=== PATIENT | female | born 1935 | race Caucasian/White ===

== ENCOUNTER 2017-09-22 09:59 | Outpatient (CLI) | payer MEDICARE, OTHER | END 2017-09-22 10:00 | disposition home or self-care (01) | LOC: BICMAMMO 09:59 | PROVIDERS: ATTEND Internal Medicine | DX: Z12.31 Encounter for screening mammogram for malignant neoplasm of breast (principal); R92.1 Mammographic calcification found on diagnostic imaging of breast | CPT/HCPCS: 77063; 77067 ==

== ENCOUNTER 2019-02-18 20:12 | Emergency (ER) | payer MEDICARE, OTHER ==
[~2019-02-18 20:12] MED LIST: ISOVUE-370 76%-LOCM 1 ML ONE
[2019-02-18 20:44] LABS: #Eosinphils 0.2 thou/uL (0.0-0.7); #Lymphocytes 1.9 thou/uL (1.20-3.40); #Monocytes 0.7 thou/uL (0.11-0.59); %Basophils 0.5 % (0.0-1.0); %Eosinophils 3.1 % (0.0-10.0); %Lymphocytes 23.9 % (21.0-51.0); %Monocytes 8.8 % (0.0-10.0); %Neutrophils 63.7 % (42.0-75.0); Hemoglobin 12.2 g/dL (12.0-16.0); Mean Corpuscular HGB CONC 33.2 g/dL (32.0-36.0); Mean Corpuscular Hemoglobin 31.1 pg (27.0-31.0); Mean Corpuscular Volume 93.5 fL (78.0-98.0); Mean Platelet Volume 8.8 fL (7.4-10.4); Platelet Count 182 thou/uL (130-400); RBC Distribution Width 13.5 % (11.5-14.5); Red Blood Cell (RBC) Count 3.92 mill/uL (4.20-5.40); White Blood Cell (WBC) Count 7.8 thou/uL (4.8-10.8)
[2019-02-18 21:05] LABS: ALT (SGPT) 15 U/L (8-55); AST (SGOT) 26 U/L (5-34); Albumin 3.9 g/dL (3.4-4.8); Alkaline Phosphatase 97 U/L (40-150); Anion Gap 12 mmol/L (10-20); BUN (Urea Nitrogen) 27 mg/dL (9.8-20.1); Bilirubin, Total 0.3 mg/dL (0.2-1.2); CK (CPK) 126 U/L (29-168); Calc. Creatinine Clearance 0 mL/min (70-130); Calcium 9.5 mg/dL (7.8-10.44); Carbon Dioxide 26 mmol/L (23-31); Chloride 105 mmol/L (98-107); Estimated GFR-MDRD 41; Globulin 2.8 g/dL (2.4-3.5); Glucose 120 mg/dL (83-110); Protein, Total 6.7 g/dL (6.0-8.3); Sodium 139 mmol/L (136-145)
--- NOTE | 2019-02-18 21:30 | CT ---
CT Aortic Dissection Protocol History: Chest pain Comparison: CT chest 2016 Findings: CT angiogram chest and abdomen performed after the intravenous administration of contrast. 3-D rendering provided. Mild dilatation of the distal transverse aorta measuring up to 3.5 cm. No intramural hematoma. No dis section. No penetrating atherosclerotic ulcer. Large volume plaque left internal iliac artery. Multiple centrilobular nodules are present within the right upper lobe with bronchiectasis. Mild bron chiectasis within the right middle lobe and the lingula with Heart size is enlarged. Pulmonary trunk is enlarged. No mediastinal adenopathy. There is abnormal wall edema of the gallbladder. Common bile duct measures 9 mm, upper limits of norm al for age. No dilated loops of large or small bowel the abdomen. No retroperitoneal. Aortic adenopathy. 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 Multilevel retrolisthesis due to degenerative disc space disease with neural foraminal narrowing. Dorsal column stimulator 4is in place. High-grade narrowing of the celiac trunk with post not dilatation from the arcuate ligament. Mild jose rowing of the superior mesenteric artery due to calcific plaque. Multiple renal parapelvic cysts. Impression: 1. No evidence of aortic dissection. 2. Mildly widened distal transverse aorta measuring up to 3.5 cm. 3. Circumferential wall edema of the gallbladder. Correlation for right upper quadrant pain and acute cholecystitis is recommended 4. Mildly dilated for age common bile duct measuring up to 9 mm. 5. Narrowed celiac trunk due to enlarged reading arcuate ligament. 6. 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 7. Centrilobular nodules within the lingula, right middle lobe, right upper lobe can be seen with chr onic atypical infectious process including mycobacterium.
== END 2019-02-18 23:13 | disposition home or self-care (01) ==
LOC: ERS 20:12
DX: R07.89 Other chest pain (principal); M54.6 Pain in thoracic spine; I49.9 Cardiac arrhythmia, unspecified; I48.91 Unspecified atrial fibrillation; M19.90 Unspecified osteoarthritis, unspecified site
CPT/HCPCS: 71275; 80053; 82550; 84484; 85025; 93005; Q9966

== ENCOUNTER 2021-06-19 07:38 | Outpatient (CLI) | payer MEDICARE, OTHER | END 2021-06-19 07:39 | disposition home or self-care (01) | LOC: CT 07:38 | PROVIDERS: ATTEND Physician Assistant Medical | DX: K83.8 Other specified diseases of biliary tract (principal); R07.89 Other chest pain; K76.0 Fatty (change of) liver, not elsewhere classified; K75.3 Granulomatous hepatitis, not elsewhere classified; D73.89 Other diseases of spleen | CPT/HCPCS: 74160; 82565 ==

== ENCOUNTER 2022-11-23 12:43 | Outpatient (CLI) | payer OTHER | END 2022-11-23 12:44 | disposition home or self-care (01) | LOC: CT 12:43 | PROVIDERS: ATTEND Anesthesiology Pain Medicine | DX: M47.26 Other spondylosis with radiculopathy, lumbar region (principal); M48.061 Spinal stenosis, lumbar region without neurogenic claudication | CPT/HCPCS: 72131 ==

== ENCOUNTER 2024-02-26 13:53 | Inpatient (IN) | payer OTHER ==
[2024-02-26] MEDS ORDERED: Acetaminophen 500 MG TAB ONE (14:09)
[2024-02-26] MEDS ORDERED: HYDROmorphone 0.5 MG/0.5 ML SYRINGE ONE ×2 (14:10→15:34)
[2024-02-26] MEDS ORDERED: Bupivacaine 0.25% 10 ML VIAL ONE (15:27)
[2024-02-26] MEDS ORDERED: Ondansetron PF 4 MG/2 ML Vial ONE ×2 (15:34→17:49)
[2024-02-26 15:38] LABS: #Basophils 0.03 10x3/uL (0.0-0.2); %Basophils 0.3 % (0.0-1.0); %Eosinophils 0.9 % (0.0-10.0); %Lymphocytes 16.5 % (21.0-51.0); %Monocytes 8.3 % (0.0-10.0); %Neutrophils 73.7 % (42.0-75.0); Hematocrit 36.8 % (36.0-47.0); Hemoglobin 12.2 g/dL (12.0-16.0); Mean Corpuscular HGB CONC 33.2 g/dL (32.0-36.0); Mean Corpuscular Hemoglobin 30.8 pg (27.0-31.0); Mean Corpuscular Volume 92.9 fL (78.0-98.0); Mean Platelet Volume 10.2 fL (7.4-10.4); Platelet Count 212 10x3/uL (130-400); RBC Distribution Width 15.5 % (11.5-14.5); Red Blood Cell (RBC) Count 3.96 mill/uL (4.20-5.40)
[2024-02-26 15:53] LABS: ALT (SGPT) 12 U/L (8-55); AST (SGOT) 17 U/L (5-34); Albumin 3.2 g/dL (3.4-4.8); Alkaline Phosphatase 67 U/L (40-110); Anion Gap 12 mmol/L (10-20); BUN (Urea Nitrogen) 30 mg/dL (9.8-20.1); Bilirubin, Total 0.4 mg/dL (0.2-1.2); Calc. Creatinine Clearance 0 mL/min (70-130); Calcium 9.2 mg/dL (7.8-10.44); Carbon Dioxide 24 mmol/L (23-31); Chloride 107 mmol/L (98-107); Estimated GFR 41; Globulin 3.2 g/dL (2.4-3.5); Glucose 95 mg/dL (83-110); Potassium 4.5 mmol/L (3.5-5.1); Protein, Total 6.4 g/dL (5.8-8.1); Sodium 138 mmol/L (136-145)
[2024-02-26] MEDS ORDERED: Dextrose 50% Abboject 50 ML SYRINGE SLOW IVP PRN (16:25)
[2024-02-26] MEDS ORDERED: Dextrose 5% in Water 1,000 ML IV PRN (16:25)
[2024-02-26] MEDS ORDERED: Glucagon 1 MG/ML KIT IM PRN (16:25)
[2024-02-26] MEDS ORDERED: hydrALAZINE 20 MG/ML VIAL SLOW IVP PRN (16:25)
[2024-02-26] MEDS ORDERED: Rib Fracture Protocol PO SCH (16:30)
[2024-02-26 18:22] VITALS: BMI 28.5
[2024-02-26] MEDS: Ipratropium/Albuterol 3 ML NEB NEB SCH (19:43)
[2024-02-26] MEDS: Gabapentin 100 MG CAP PO SCH (20:44)
[2024-02-26] MEDS: Cyclobenzaprine 10 MG TAB PO PRN (20:46)
[2024-02-26] MEDS: Famotidine 20 MG TAB PO SCH (20:47)
[2024-02-26] MEDS: Ibuprofen 200 MG TAB PO SCH (21:48)
[2024-02-26] MEDS: Ondansetron ODT 4 MG TAB PO PRN (21:48)
[2024-02-26] MEDS: Lidocaine 4% Patch TD SCH (23:11)
[2024-02-26] MEDS: traMADol HCl 50 MG TAB PO SCH (23:31)
[2024-02-26] MEDS: Acetaminophen 500 MG TAB PO SCH (23:31)
[2024-02-27 04:50] LABS: #Basophils Less than 0.03 10x3/uL (0.0-0.2); #Eosinphils Less than 0.03 10x3/uL (0.0-0.7); %Basophils 0.2 % (0.0-1.0); %Eosinophils 0.2 % (0.0-10.0); %Lymphocytes 16.8 % (21.0-51.0); %Monocytes 10.2 % (0.0-10.0); %Neutrophils 72.3 % (42.0-75.0); Hematocrit 33.1 % (36.0-47.0); Hemoglobin 10.9 g/dL (12.0-16.0); Mean Corpuscular HGB CONC 32.9 g/dL (32.0-36.0); Mean Corpuscular Hemoglobin 31.4 pg (27.0-31.0); Mean Corpuscular Volume 95.4 fL (78.0-98.0); Mean Platelet Volume 10.7 fL (7.4-10.4); Platelet Count 179 10x3/uL (130-400); RBC Distribution Width 15.6 % (11.5-14.5); Red Blood Cell (RBC) Count 3.47 mill/uL (4.20-5.40)
[2024-02-27] MEDS: Transdermal Patch Removal TOP SCH ×2 (05:25→22:37)
[2024-02-27 05:30] LABS: Anion Gap 12 mmol/L (10-20); BUN (Urea Nitrogen) 28 mg/dL (9.8-20.1); Calc. Creatinine Clearance 34 mL/min (70-130); Carbon Dioxide 22 mmol/L (23-31); Chloride 108 mmol/L (98-107); Estimated GFR 41; Glucose 95 mg/dL (83-110); Potassium 4.3 mmol/L (3.5-5.1); Sodium 138 mmol/L (136-145)
[2024-02-27] MEDS ORDERED: FISH OIL PO SCH (09:00)
[2024-02-27] MEDS ORDERED: Acidophilus Lactiobac CAPSULE PO SCH (09:00)
[2024-02-27] MEDS ORDERED: Non-Formulary Item 1 EACH (Cholecalciferol (Vitamin D3) [Vitamin D3] 2,000 UNIT Capsule) PO SCH (09:00)
[2024-02-27] MEDS ORDERED: Non-Formulary Item 1 EACH (Famotidine [Famotidine] 10 MG Tablet) PO SCH (09:00)
[2024-02-27] MEDS ORDERED: EPA PO SCH (09:00)
[2024-02-27] MEDS ORDERED: DHA PO SCH (09:00)
[2024-02-27] MEDS ORDERED: [UNRECOGNIZED DRUG - OTHER] PO SCH (09:00)
[2024-02-27] MEDS ORDERED: OMEGA PO SCH (09:00)
[2024-02-27] MEDS ORDERED: Non-Formulary Item 1 EACH (Mv-Min/Iron/Folic/Calcium/Vitk [Women's Multivitamin Tablet] 1 PO SCH (09:00)
[2024-02-27] MEDS ORDERED: Non-Formulary Item 1 EACH (Lactobacillus Acidophilus [Probiotic] 1 CAPSULE Capsule) PO SCH (09:00)
[2024-02-27] MEDS: Cholecalciferol 1,000 UNITS (25 MCG) TAB PO SCH (09:01)
[2024-02-27] MEDS: Multivitamin W/ Minerals 1 TAB PO SCH (09:02)
[2024-02-27] MEDS: Fish Oil 1,000 MG CAP PO SCH (09:02)
[2024-02-27] MEDS: Famotidine 20 MG TAB PO SCH (09:02)
[2024-02-27] MEDS: Floranex 1 GM Packet PO SCH (09:02)
[2024-02-27] MEDS: Lidocaine 4% Patch TD SCH (09:03)
[2024-02-27] MEDS: Flecainide Acetate 100 MG TAB PO SCH (09:03)
[2024-02-27] MEDS: Ondansetron PF 4 MG/2 ML Vial IVP PRN (14:16)
[2024-02-27] MEDS: Atorvastatin Calcium 20 MG TAB PO SCH (20:24)
[2024-02-27] MEDS: Apixaban 2.5 MG TAB PO SCH (20:24)
[2024-02-27] MEDS ORDERED: Pravastatin Sodium 40 MG TAB PO SCH (21:00)
[2024-02-28] MEDS: Senokot S 8.6-50 MG TAB PO SCH (10:50)
[2024-02-28] MEDS ORDERED: Ipratropium/Albuterol 3 ML NEB NEB PRN (12:07)
[2024-02-28 12:55] VITALS: BP 128/59; TEMP 97.6
== END 2024-02-28 16:48 | disposition home or self-care (01) | DRG 184 ==
LOC: ERS 13:53 → 2SW 16:25 → OBSVTOIN 02-27 18:50
PROVIDERS: ADMIT Specialist; ATTEND Hospitalist
DX: S22.42XA Multiple fractures of ribs, left side, initial encounter for closed fracture (principal); I48.20 Chronic atrial fibrillation, unspecified; T79.7XXA Traumatic subcutaneous emphysema, initial encounter; W18.30XA Fall on same level, unspecified, initial encounter; I10 Essential (primary) hypertension; E78.5 Hyperlipidemia, unspecified; M19.90 Unspecified osteoarthritis, unspecified site; Z90.710 Acquired absence of both cervix and uterus; Z98.890 Other specified postprocedural states; Z87.891 Personal history of nicotine dependence; Z88.8 Allergy status to other drugs, medicaments and biological substances; Z79.01 Long term (current) use of anticoagulants; Z79.899 Other long term (current) drug therapy
CPT/HCPCS: 36415; 71045; 71250; 80048; 80053; 85025; 93005; 93010; 94640; 94799; 96374; 96375; 96376; G0378; G0390; J0665; J1170; J2405; J7620; Q0162

== ENCOUNTER 2024-03-01 11:20 | Inpatient (IN) | payer OTHER ==
[2024-03-01] MEDS ORDERED: Cefepime 2 GM VIAL ONE (11:44)
[2024-03-01] MEDS ORDERED: Sodium Chloride 0.9% 100 ML ONE (11:44)
[2024-03-01] MEDS ORDERED: NOREPINEPHRINE 8 MG/250 ML-D5W 250 ML ONE (12:02)
[2024-03-01 13:07] LABS: Bacteria/HPF None Seen HPF (None Seen); Bilirubin Negative (Negative); Blood, Urine Trace (Negative); CAUTI Indications for Culture Alt mental st,lethar; Glucose, Urine (Dipstick) Normal (Negative); Ketone, Urine Negative (Negative); Leukocyte Negative Leu/uL (Negative); Nitrite Negative (Negative); Protein, Urine (Dipstick) 20 mg/dL (Neg-Trace); Specific Gravity, Urine 1.026 (1.002-1.036); Urobilinogen Normal mg/dL (Less than 2)
[2024-03-01 13:10] LABS: #Basophils 0.04 10x3/uL (0.0-0.2); %Basophils 0.5 % (0.0-1.0); %Eosinophils 0.4 % (0.0-10.0); %Lymphocytes 17.1 % (21.0-51.0); %Monocytes 16.6 % (0.0-10.0); %Neutrophils 64.9 % (42.0-75.0); Hematocrit 35.3 % (36.0-47.0); Hemoglobin 11.3 g/dL (12.0-16.0); Mean Corpuscular Hemoglobin 31.3 pg (27.0-31.0); Mean Corpuscular Volume 97.8 fL (78.0-98.0); Mean Platelet Volume 10.5 fL (7.4-10.4); Platelet Count 173 10x3/uL (130-400); RBC Distribution Width 15.8 % (11.5-14.5); Red Blood Cell (RBC) Count 3.61 mill/uL (4.20-5.40)
[2024-03-01 13:14] LABS: Clarity Hazy (Clear)
[2024-03-01 13:15] LABS: Squamous Epithelial None Seen HPF (0-3)
[2024-03-01 13:17] LABS: Urine Culture Reflex No No
[2024-03-01 13:47] LABS: Alkaline Phosphatase 56 U/L (40-110); Bilirubin, Total 0.5 mg/dL (0.2-1.2)
[2024-03-01 13:48] LABS: Calc. Creatinine Clearance 0 mL/min (70-130); Estimated GFR 17
[2024-03-01 13:49] LABS: BUN (Urea Nitrogen) 38 mg/dL (9.8-20.1)
[2024-03-01 13:58] LABS: ALT (SGPT) 15 U/L (8-55); AST (SGOT) 23 U/L (5-34); Albumin 2.1 g/dL (3.4-4.8); Anion Gap 16 mmol/L (10-20); Calcium 7.8 mg/dL (7.8-10.44); Carbon Dioxide 13 mmol/L (23-31); Chloride 106 mmol/L (98-107); Globulin 3.1 g/dL (2.4-3.5); Glucose 56 mg/dL (83-110); Potassium 4.4 mmol/L (3.5-5.1); Protein, Total 5.2 g/dL (5.8-8.1); Sodium 131 mmol/L (136-145)
[2024-03-01] MEDS ORDERED: Acetaminophen 650 MG Suppository ONE (14:07)
[2024-03-01 14:11] LABS: Troponin I 0.077 ng/mL (< 0.028)
[2024-03-01] MEDS ORDERED: Ondansetron PF 4 MG/2 ML Vial IVP PRN (14:14)
[2024-03-01] MEDS ORDERED: Acetaminophen 650 MG Suppository PR PRN (14:14)
[2024-03-01] MEDS ORDERED: Amiodarone 150 MG/3 ML VIAL ONE (14:15)
[2024-03-01] MEDS ORDERED: Amiodarone 450 MG in Dextrose 5% in Water 250 ML IVPB SCH (14:30)
[2024-03-01] MEDS ORDERED: Heparin 5,000 UNITS/ML VIAL SC SCH (15:00)
[2024-03-01 16:11] LABS: Magnesium 1.8 mg/dL (1.6-2.6); Phosphorus 3.4 mg/dL (2.3-4.7)
[2024-03-01] MEDS: Sodium Chloride 0.9% 1,000 ML IV SCH ×2 (17:00→17:01)
[2024-03-01] MEDS: Vancomycin (BATCH) 1.75 GM in Premix 1 BAG IVPB SCH ×2 (17:01→17:32)
[2024-03-01] MEDS: Amiodarone 150 MG in Dextrose 5% in Water 100 ML IVPB SCH (17:01)
[2024-03-01 17:20] VITALS: BMI 30.8
[2024-03-01] MEDS: Azithromycin 500 MG in Sodium Chloride 0.9% 250 ML 250 ML IVPB SCH (17:39)
[2024-03-01] MEDS: Azithromycin 500 MG VIAL ONE (17:39)
[2024-03-01 17:41] LABS: Base Excess (BEa) -15.5 mEq/L (-2.0 to +3.0); CO2 Tension 32.6 mmHg (35.0-45.0); Calcium, Ionized (arterial) 1.11 mmol/L (1.12-1.30); Carboxyhemoglobin (COHb) 1.3 gm% (0.0-3.0); Hematocrit-ABG 34 % (36.0-47.0); Hemoglobin (Hb) 11.6 g/dL (12.0-16.0); O2 Tension (PaO2), arterial 82.1 mmHg (> 60.0)
[2024-03-01 17:45] LABS: pH, Arterial 7.176 (7.35-7.45)
[2024-03-01] MEDS ORDERED: Vancomycin Dose by Levels Sliding Scale (Wt 71-99) FS SCH (17:45)
[2024-03-01 17:48] LABS: Puncture Site LBA
[2024-03-01] MEDS ORDERED: NOREPINEPHRINE 8 MG/250 ML-D5W 250 ML IVPB SCH (18:00)
[2024-03-01] MEDS: Dextrose 50% Abboject 50 ML SYRINGE ONE (18:14)
[2024-03-01] MEDS ORDERED: Dexmedetomidine In 0.9 % NaCl 100 ML IVPB SCH (19:15)
[2024-03-01 19:24] LABS: Troponin I 0.188 ng/mL (< 0.028)
[2024-03-01] MEDS: Acetaminophen 325 MG TAB PO PRN (20:15)
[2024-03-01] MEDS: SODIUM BICARBONATE IV SCH (20:15)
[2024-03-01] MEDS: Sodium Bicarbonate 150 MEQ in Dextrose 5% in Water 1,000 ML IV SCH (20:15)
[2024-03-01] MEDS: ADMIXTURE FEE IV SCH (20:15)
[2024-03-01] MEDS: Atorvastatin Calcium 20 MG TAB PO SCH (20:16)
[2024-03-01] MEDS: Famotidine 20 MG TAB PO SCH (20:16)
[2024-03-01] MEDS: Apixaban 2.5 MG TAB PO SCH (20:16)
[2024-03-01] MEDS ORDERED: Vancomycin 1 GM in Sodium Chloride 0.9% 250 ML 300 ML IVPB SCH (21:00)
[2024-03-01] MEDS ORDERED: Flecainide Acetate 100 MG TAB PO SCH (21:00)
[2024-03-01 22:34] LABS: Troponin I 0.272 ng/mL (< 0.028)
[2024-03-02] MEDS: Dexmedetomidine In 0.9 % NaCl 100 ML IV SCH (00:56)
[2024-03-02 01:34] LABS: Actual Bicarbonate (HCO3a) 22.7 mEq/L (22-28); CO2 Tension 38.6 mmHg (35.0-45.0); Calcium, Ionized (arterial) 1.06 mmol/L (1.12-1.30); Carboxyhemoglobin (COHb) 0.7 gm% (0.0-3.0); Hematocrit-ABG 33 % (36.0-47.0); Hemoglobin (Hb) 11.1 g/dL (12.0-16.0); Potassium - ABG Lab 3.79 mmol/L (3.70-5.30); pH, Arterial 7.388 (7.35-7.45)
[2024-03-02 01:35] LABS: Puncture Site LBA
[2024-03-02 04:00] LABS: Hematocrit 30.5 % (36.0-47.0); Hemoglobin 10.3 g/dL (12.0-16.0); Mean Corpuscular HGB CONC 33.8 g/dL (32.0-36.0); Mean Corpuscular Hemoglobin 31.5 pg (27.0-31.0); Mean Corpuscular Volume 93.3 fL (78.0-98.0); Mean Platelet Volume 10.3 fL (7.4-10.4); Platelet Count 206 10x3/uL (130-400); RBC Distribution Width 15.4 % (11.5-14.5); Red Blood Cell (RBC) Count 3.27 mill/uL (4.20-5.40)
[2024-03-02 04:22] LABS: ALT (SGPT) 18 U/L (8-55); AST (SGOT) 24 U/L (5-34); Albumin 1.9 g/dL (3.4-4.8); Alkaline Phosphatase 61 U/L (40-110); Anion Gap 15 mmol/L (10-20); BUN (Urea Nitrogen) 36 mg/dL (9.8-20.1); Bilirubin, Total 0.3 mg/dL (0.2-1.2); Calc. Creatinine Clearance 21 mL/min (70-130); Calcium 7.6 mg/dL (7.8-10.44); Carbon Dioxide 22 mmol/L (23-31); Chloride 104 mmol/L (98-107); Estimated GFR 22; Glucose 135 mg/dL (83-110); Potassium 3.8 mmol/L (3.5-5.1); Protein, Total 4.9 g/dL (5.8-8.1); Sodium 137 mmol/L (136-145)
[2024-03-02 05:06] LABS: Anisocytosis SLIGHT = 6-15 cells HPF (0-5); Band 24 % (5-11); Large Platelets 3.8 % (0-5); Lymphocytes 20 % (21-51); Macrocytosis SLIGHT = 6-15 cells HPF (0-5); Monocytes 15 % (0-10); Neutrophil 40 % (42-75); Ovalocytes SLIGHT = 2-5 cells HPF (0-1); Platelet Adequacy Comment Platelets Normal; Polychromasia SLIGHT = 2-3 cells HPF (0-2); Smudge Cells 7.7 %
[2024-03-02 10:44] LABS: Actual Bicarbonate (HCO3a) 11.8 mEq/L (22-28)
[2024-03-02] MEDS: Sodium Bicarbonate 150 MEQ in Dextrose 5% in Water 1,000 ML IV SCH (11:14)
[2024-03-02] MEDS: Cefepime 1 GM in Sodium Chloride 0.9% 100 ML IVPB SCH (11:14)
[2024-03-03] MEDS: Melatonin 3 MG TAB PO SCH (00:21)
[2024-03-03 04:42] LABS: #Basophils Less than 0.03 10x3/uL (0.0-0.2); %Lymphocytes 14.1 % (21.0-51.0); %Monocytes 10.3 % (0.0-10.0); %Neutrophils 74.2 % (42.0-75.0); Hemoglobin 9.6 g/dL (12.0-16.0); Mean Corpuscular HGB CONC 33.1 g/dL (32.0-36.0); Mean Corpuscular Hemoglobin 31.3 pg (27.0-31.0); Mean Corpuscular Volume 94.5 fL (78.0-98.0); Mean Platelet Volume 10.4 fL (7.4-10.4); Platelet Count 172 10x3/uL (130-400); RBC Distribution Width 15.3 % (11.5-14.5); Red Blood Cell (RBC) Count 3.07 mill/uL (4.20-5.40)
[2024-03-03 05:00] LABS: Anion Gap 11 mmol/L (10-20); BUN (Urea Nitrogen) 19 mg/dL (9.8-20.1); Calc. Creatinine Clearance 40 mL/min (70-130); Calcium 7.7 mg/dL (7.8-10.44); Carbon Dioxide 25 mmol/L (23-31); Chloride 104 mmol/L (98-107); Estimated GFR 46; Glucose 117 mg/dL (83-110); Potassium 3.7 mmol/L (3.5-5.1); Sodium 136 mmol/L (136-145)
[2024-03-03 06:03] LABS: Critical Call Chem Troponin I DECREASING; Troponin I 0.263 ng/mL (< 0.028)
[2024-03-04 04:59] LABS: #Basophils Less than 0.03 10x3/uL (0.0-0.2); %Basophils 0.2 % (0.0-1.0); %Eosinophils 0.8 % (0.0-10.0); %Lymphocytes 16.2 % (21.0-51.0); %Monocytes 10.4 % (0.0-10.0); %Neutrophils 71.8 % (42.0-75.0); Hematocrit 29.9 % (36.0-47.0); Hemoglobin 10.1 g/dL (12.0-16.0); Mean Corpuscular HGB CONC 33.8 g/dL (32.0-36.0); Mean Corpuscular Hemoglobin 31.7 pg (27.0-31.0); Mean Corpuscular Volume 93.7 fL (78.0-98.0); Mean Platelet Volume 10.3 fL (7.4-10.4); Platelet Count 205 10x3/uL (130-400); RBC Distribution Width 14.9 % (11.5-14.5); Red Blood Cell (RBC) Count 3.19 mill/uL (4.20-5.40)
[2024-03-04 05:16] LABS: Anion Gap 11 mmol/L (10-20); BUN (Urea Nitrogen) 15 mg/dL (9.8-20.1); Calc. Creatinine Clearance 45 mL/min (70-130); Calcium 8.3 mg/dL (7.8-10.44); Carbon Dioxide 28 mmol/L (23-31); Chloride 103 mmol/L (98-107); Estimated GFR 54; Glucose 93 mg/dL (83-110); Potassium 3.8 mmol/L (3.5-5.1); Sodium 138 mmol/L (136-145)
[2024-03-04] MEDS: Lidocaine 4% Patch TD SCH (09:17)
[2024-03-04] MEDS: Ondansetron ODT 4 MG TAB PO PRN (14:10)
[2024-03-04] MEDS: Gabapentin 100 MG CAP PO SCH (14:10)
[2024-03-04] MEDS: Ketorolac Tromethamine 30 MG (1 mL) VIAL IVP PRN (14:12)
[2024-03-04] MEDS: Cefdinir 300 MG CAP PO SCH (20:30)
[2024-03-04] MEDS: NIFEdipine XL 30 MG ER.TAB PO SCH (20:31)
[2024-03-04] MEDS: Transdermal Patch Removal TOP SCH (21:18)
[2024-03-04] MEDS: hydrALAZINE 20 MG/ML VIAL SLOW IVP SCH (23:50)
[2024-03-05] MEDS: Ibuprofen 200 MG TAB PO PRN (01:36)
[2024-03-05] MEDS ORDERED: Fish Oil 1,000 MG CAP PO SCH (09:00)
[2024-03-05] MEDS: Saccharomyces boulardii 250 MG CAP PO SCH (09:05)
[2024-03-05] MEDS: Mirabegron ER 25 MG ER.TAB PO SCH (09:05)
[2024-03-05] MEDS: Cholecalciferol 1,000 UNITS (25 MCG) TAB PO SCH (09:06)
[2024-03-05] MEDS: Multivitamin W/ Minerals 1 TAB PO SCH (09:06)
[2024-03-05] MEDS: Lisinopril 20 MG TAB PO SCH (09:07)
[2024-03-05] MEDS: Metoprolol Tartrate 25 MG TAB PO SCH ×2 (13:15→20:10)
[2024-03-05] MEDS: Polyethylene Glycol 3350 17 GM Packet PO SCH (20:08)
[2024-03-07] MEDS: NIFEdipine XL 90 MG ER.TAB PO SCH (09:31)
[2024-03-07] MEDS: Polyethylene Glycol 3350 17 GM Packet PO PRN (16:00)
[2024-03-08 10:47] VITALS: BMI 30.8
[2024-03-08] MEDS: Diclofenac 1% 50 GM TOPICAL GEL TP SCH (14:17)
[2024-03-08] MEDS: traZODone HCl 50 MG TAB PO SCH (20:34)
[2024-03-09] MEDS: traZODone HCl 50 MG TAB PO PRN (20:08)
[2024-03-11] MEDS ORDERED: Iopamidol-370 76% 500 ML MDV (1 ML CHARGE) ONE (12:32)
[2024-03-11 20:54] VITALS: BP 158/76; TEMP 97.8
== END 2024-03-11 20:30 | disposition home or self-care (01) | DRG 871 ==
LOC: ERS 11:20 → ERHOLD 13:46 → CCU 16:17 → 2SE 03-03 18:04 → MSONC 03-10 17:37
PROVIDERS: ADMIT Family Medicine; ATTEND Internal Medicine
PROC: 0T9B70Z Drainage of Bladder with Drainage Device, Via Natural or Artificial Opening (ICD-10-PCS; principal; 2024-03-01)
PROC: 4A133R1 Monitoring of Arterial Saturation, Peripheral, Percutaneous Approach (ICD-10-PCS; 2024-03-01)
PROC: 3E03329 Introduction of Other Anti-infective into Peripheral Vein, Percutaneous Approach (ICD-10-PCS; 2024-03-01)
PROC: 5A09357 Assistance with Respiratory Ventilation, Less than 24 Consecutive Hours, Continuous Positive Airway Pressure (ICD-10-PCS; 2024-03-02)
DX: A41.9 Sepsis, unspecified organism (principal); G93.41 Metabolic encephalopathy; J18.9 Pneumonia, unspecified organism; R65.21 Severe sepsis with septic shock; R57.0 Cardiogenic shock; I47.20 Ventricular tachycardia, unspecified; N17.9 Acute kidney failure, unspecified; E87.20 Acidosis, unspecified; I48.20 Chronic atrial fibrillation, unspecified; M19.90 Unspecified osteoarthritis, unspecified site; N18.9 Chronic kidney disease, unspecified; I12.9 Hypertensive chronic kidney disease with stage 1 through stage 4 chronic kidney disease, or unspecified chronic kidney disease; I25.10 Atherosclerotic heart disease of native coronary artery without angina pectoris; E78.5 Hyperlipidemia, unspecified; T46.2X5A Adverse effect of other antidysrhythmic drugs, initial encounter; Z88.8 Allergy status to other drugs, medicaments and biological substances; Z88.5 Allergy status to narcotic agent; Z79.82 Long term (current) use of aspirin; Z79.899 Other long term (current) drug therapy; Z79.01 Long term (current) use of anticoagulants; Z98.890 Other specified postprocedural states; Z87.891 Personal history of nicotine dependence; Z90.710 Acquired absence of both cervix and uterus
CPT/HCPCS: 36415; 36416; 36600; 51702; 70450; 71045; 71275; 80048; 80053; 81001; 82805; 83605; 83735; 83880; 84100; 84484; 85025; 87040; 87077; 87081; 87086; 87149; 93005; 93010; 93306; 94660; 94760; 96360; 96365; 96366; 96367; 96375; J0282; J0360; J0456; J0692; J1885; J3370; J3490; J7050; J7070; J7999; Q0162; Q9967

== ENCOUNTER 2024-08-01 12:09 | Outpatient (CLI) | payer MEDICARE | END 2024-08-01 12:10 | disposition home or self-care (01) | LOC: BICRAD 12:09 | PROVIDERS: ATTEND Family Medicine | DX: J18.9 Pneumonia, unspecified organism (principal) | CPT/HCPCS: 71046 ==

== ENCOUNTER 2024-09-29 05:34 | Inpatient (IN) | payer MEDICARE ==
[2024-09-29] MEDS ORDERED: Morphine 4 MG/ML VIAL ONE (06:12)
[2024-09-29] MEDS ORDERED: Ondansetron PF 4 MG/2 ML Vial ONE (06:12)
[2024-09-29 06:18] LABS: #Basophils Less than 0.03 10x3/uL (0.0-0.2); %Basophils 0.2 % (0.0-1.0); %Eosinophils 2.9 % (0.0-10.0); %Monocytes 0.8 % (0.0-10.0); %Neutrophils 85.9 % (42.0-75.0); Hematocrit 36.3 % (36.0-47.0); Hemoglobin 11.7 g/dL (12.0-16.0); Mean Corpuscular HGB CONC 32.2 g/dL (32.0-36.0); Mean Corpuscular Hemoglobin 30.2 pg (27.0-31.0); Mean Corpuscular Volume 93.6 fL (78.0-98.0); Mean Platelet Volume 10.3 fL (7.4-10.4); Platelet Count 191 10x3/uL (130-400); RBC Distribution Width 14.4 % (11.5-14.5); Red Blood Cell (RBC) Count 3.88 mill/uL (4.20-5.40)
[2024-09-29 06:25] LABS: ALT (SGPT) 8 U/L (Less than 34); AST (SGOT) 20 U/L (11-34); Albumin 3.1 g/dL (3.1-4.5); Alkaline Phosphatase 106 U/L (40-110); Anion Gap 13 mmol/L (10-20); BUN (Urea Nitrogen) 35 mg/dL (9.8-20.1); Bilirubin, Total 0.4 mg/dL (0.3-1.2); Calc. Creatinine Clearance 0 mL/min (70-130); Calcium 9.2 mg/dL (7.8-10.44); Carbon Dioxide 24 mmol/L (23-31); Chloride 108 mmol/L (98-107); Estimated GFR 23; Globulin 3.1 g/dL (2.4-3.5); Glucose 95 mg/dL (83-110); Potassium 4.2 mmol/L (3.5-5.1); Protein, Total 6.2 g/dL (5.8-8.1); Sodium 141 mmol/L (136-145)
[2024-09-29 07:34] LABS: Troponin I 0.018 ng/mL (< 0.028)
[2024-09-29 11:05] LABS: Bacteria/HPF None Seen HPF (None Seen); Bilirubin Negative (Negative); Blood, Urine Negative (Negative); CAUTI Indications for Culture Pelvic or flank pain; Clarity Clear (Clear); Glucose, Urine (Dipstick) Normal (Negative); Ketone, Urine Negative (Negative); Leukocyte Negative Leu/uL (Negative); Nitrite Negative (Negative); Protein, Urine (Dipstick) 10 mg/dL (Neg-Trace); RBC/HPF 0-3 HPF (0-3); Specific Gravity, Urine 1.014 (1.002-1.036); Squamous Epithelial 0-3 HPF (0-3); Urobilinogen Normal mg/dL (Less than 2); WBC/HPF 0-3 HPF (0-3); pH, Urine 5.5 (5.0-9.0)
[2024-09-29 11:06] LABS: Urine Culture Reflex No No
[2024-09-29] MEDS ORDERED: Sodium Chloride 0.9% 100 ML ONE (11:42)
[2024-09-29] MEDS ORDERED: Piperacillin/Tazobactam 3.375 GM VIAL ONE (11:42)
[2024-09-29] MEDS ORDERED: Ondansetron PF 4 MG/2 ML Vial IVP PRN (11:43)
[2024-09-29] MEDS ORDERED: Morphine 4 MG/ML VIAL SLOW IVP PRN (11:47)
[2024-09-29] MEDS: Sodium Chloride 0.9% 1,000 ML IV SCH (12:45)
[2024-09-29] MEDS: Piperacillin/Tazobactam 3.375 GM in Sodium Chloride 0.9% 100 ML IVPB SCH (16:47)
[2024-09-29 16:55] VITALS: BMI 26.0
[2024-09-29] MEDS: Apixaban 2.5 MG TAB PO SCH (21:19)
[2024-09-29] MEDS: Dofetilide 0.125 MG CAP PO SCH (21:20)
[2024-09-29] MEDS: Atorvastatin Calcium 20 MG TAB PO SCH (21:20)
[2024-09-29] MEDS: Pregabalin 50 MG CAP PO SCH (21:20)
[2024-09-30] MEDS: Albumin 25% 25 GM (100 mL) BOT IVPB SCH (02:03)
[2024-09-30 02:09] LABS: #Basophils Less than 0.03 10x3/uL (0.0-0.2); %Basophils 0.2 % (0.0-1.0); %Eosinophils 5.8 % (0.0-10.0); %Monocytes 10.2 % (0.0-10.0); %Neutrophils 62.6 % (42.0-75.0); Hematocrit 27.2 % (36.0-47.0); Hemoglobin 8.9 g/dL (12.0-16.0); Mean Corpuscular HGB CONC 32.7 g/dL (32.0-36.0); Mean Corpuscular Hemoglobin 30.8 pg (27.0-31.0); Mean Corpuscular Volume 94.1 fL (78.0-98.0); Mean Platelet Volume 10.7 fL (7.4-10.4); Platelet Count 155 10x3/uL (130-400); RBC Distribution Width 14.7 % (11.5-14.5); Red Blood Cell (RBC) Count 2.89 mill/uL (4.20-5.40)
[2024-09-30 02:25] LABS: ALT (SGPT) 21 U/L (Less than 34); AST (SGOT) 41 U/L (11-34); Albumin 2.4 g/dL (3.1-4.5); Alkaline Phosphatase 75 U/L (40-110); Anion Gap 12 mmol/L (10-20); BUN (Urea Nitrogen) 33 mg/dL (9.8-20.1); Bilirubin, Total 0.3 mg/dL (0.3-1.2); Calc. Creatinine Clearance 19 mL/min (70-130); Carbon Dioxide 20 mmol/L (23-31); Chloride 109 mmol/L (98-107); Estimated GFR 22; Globulin 2.5 g/dL (2.4-3.5); Glucose 87 mg/dL (83-110); Potassium 4.7 mmol/L (3.5-5.1); Protein, Total 4.9 g/dL (5.8-8.1); Sodium 136 mmol/L (136-145)
[2024-09-30] MEDS ORDERED: NOREPINEPHRINE 8 MG/250 ML-D5W 250 ML IVPB SCH (02:30)
[2024-09-30] MEDS: Sodium Chloride 0.9% 1,000 ML IV SCH (02:50)
[2024-09-30] MEDS: Ipratropium/Albuterol 3 ML NEB NEB PRN (03:26)
[2024-09-30] MEDS ORDERED: Ipratropium/Albuterol 3 ML NEB EZPAP PRN (03:30)
[2024-09-30 05:14] LABS: Influenza A by NAA Not Detected (NotDetected); Influenza B by NAA Not Detected (NotDetected); SARS-CoV-2 NAA Rapid Test Not Detected (NotDetected)
[2024-09-30 06:18] LABS: #Basophils Less than 0.03 10x3/uL (0.0-0.2); %Basophils 0.3 % (0.0-1.0); %Eosinophils 5.4 % (0.0-10.0); %Monocytes 10.7 % (0.0-10.0); %Neutrophils 59.3 % (42.0-75.0); Hematocrit 27.4 % (36.0-47.0); Hemoglobin 8.9 g/dL (12.0-16.0); Mean Corpuscular HGB CONC 32.5 g/dL (32.0-36.0); Mean Corpuscular Hemoglobin 30.7 pg (27.0-31.0); Mean Corpuscular Volume 94.5 fL (78.0-98.0); Mean Platelet Volume 10.8 fL (7.4-10.4); Platelet Count 142 10x3/uL (130-400); RBC Distribution Width 14.9 % (11.5-14.5)
[2024-09-30] MEDS: Pantoprazole 40 MG DR.TAB PO SCH (10:14)
[2024-09-30] MEDS: NIFEdipine XL 90 MG ER.TAB PO SCH (10:14)
[2024-09-30] MEDS: Mirabegron ER 25 MG ER.TAB PO SCH (10:14)
[2024-09-30] MEDS: guaiFENesin/DM ER PO SCH (10:15)
[2024-09-30] MEDS: Benzonatate 100 MG CAP PO PRN (14:48)
[2024-09-30] MEDS: Acetaminophen 325 MG TAB PO PRN (14:48)
[2024-09-30 17:46] VITALS: BP 108/62; TEMP 98.2
== END 2024-09-30 20:32 | disposition home or self-care (01) | DRG 386 ==
LOC: ERS 05:34 → SURG A 13:27 → OBSVTOIN 09-30 02:37
PROVIDERS: ADMIT Internal Medicine; ATTEND Internal Medicine
PROC: 30233J1 Transfusion of Nonautologous Serum Albumin into Peripheral Vein, Percutaneous Approach (ICD-10-PCS; principal; 2024-09-30)
DX: K51.50 Left sided colitis without complications (principal); N17.9 Acute kidney failure, unspecified; I48.91 Unspecified atrial fibrillation; I10 Essential (primary) hypertension; M19.90 Unspecified osteoarthritis, unspecified site; F10.90 Alcohol use, unspecified, uncomplicated; D63.8 Anemia in other chronic diseases classified elsewhere; Z88.5 Allergy status to narcotic agent; Z88.8 Allergy status to other drugs, medicaments and biological substances; Z90.710 Acquired absence of both cervix and uterus; Z79.82 Long term (current) use of aspirin; Z79.01 Long term (current) use of anticoagulants; Z79.899 Other long term (current) drug therapy
CPT/HCPCS: 36415; 71045; 74176; 80053; 81001; 83605; 83690; 83735; 83880; 84484; 85025; 86850; 86900; 86901; 93005; 94640; J2270; J2405; J2543; J7030; J7620; J8499; P9047

== ENCOUNTER 2024-10-09 12:24 | Outpatient (CLI) | payer MEDICARE | END 2024-10-09 12:25 | disposition home or self-care (01) | LOC: BICRAD 12:24 | PROVIDERS: ATTEND Nurse Practitioner Family | DX: R06.2 Wheezing (principal) | CPT/HCPCS: 71046 ==

== ENCOUNTER 2024-10-12 11:18 | Outpatient (CLI) | payer MEDICARE | END 2024-10-12 11:19 | disposition home or self-care (01) | LOC: NM 11:18 | PROVIDERS: ATTEND Nurse Practitioner Family | DX: R06.00 Dyspnea, unspecified (principal); I51.7 Cardiomegaly | CPT/HCPCS: 71046; 78451; A9540 ==

== ENCOUNTER 2025-04-24 13:56 | Outpatient (CLI) | payer MEDICARE | END 2025-04-24 13:57 | disposition home or self-care (01) | LOC: RAD 13:56 | PROVIDERS: ATTEND Internal Medicine Critical Care Medicine | DX: R06.00 Dyspnea, unspecified (principal); I51.7 Cardiomegaly; J90 Pleural effusion, not elsewhere classified; J98.11 Atelectasis | CPT/HCPCS: 71046 ==

== ENCOUNTER 2025-07-14 09:03 | Inpatient (IN) | payer MEDICARE ==
[2025-07-14] MEDS ORDERED: Ondansetron PF 4 MG/2 ML Vial ONE (09:18)
[2025-07-14 09:35] LABS: #Basophils Less than 0.03 10x3/uL (0.0-0.2); #Eosinophils Less than 0.03 10x3/uL (0.0-0.7); #Monocytes 0.15 10x3/uL (0.11-0.59); #Neutrophils 12.91 10x3/uL (1.40-6.50); %Basophils 0.1 % (0.0-1.0); %Eosinophils 0.1 % (0.0-10.0); %Lymphocytes 4.4 % (21.0-51.0); %Monocytes 1.1 % (0.0-10.0); %Neutrophils 93.6 % (42.0-75.0); Hematocrit 37.0 % (36.0-47.0); Hemoglobin 12.3 g/dL (12.0-16.0); Mean Corpuscular Hemoglobin 28.9 pg (27.0-31.0); Mean Corpuscular Volume 87.1 fL (78.0-98.0); Platelet Count 279 10x3/uL (130-400); Red Blood Cell (RBC) Count 4.25 mill/uL (4.20-5.40); White Blood Cell (WBC) Count 13.79 10x3/uL (4.8-10.8)
[2025-07-14 09:54] LABS: INR-International Normal Ratio 1.2; PTT 26.4 sec (22.9-36.1); Prothrombin Time 15.5 sec (12.0-14.7)
[2025-07-14 09:56] LABS: ALT (SGPT) 8 U/L (Less than 34); AST (SGOT) 17 U/L (11-34); Albumin 3.1 g/dL (3.1-4.5); Alkaline Phosphatase 104 U/L (40-110); Anion Gap 16 mmol/L (10-20); BUN (Urea Nitrogen) 43 mg/dL (9.8-20.1); Bilirubin, Total 0.3 mg/dL (0.3-1.2); Calc. Creatinine Clearance 0 mL/min (70-130); Calcium 9.0 mg/dL (7.8-10.44); Carbon Dioxide 22 mmol/L (23-31); Chloride 109 mmol/L (98-107); Globulin 3.2 g/dL (2.4-3.5); Glucose 91 mg/dL (83-110); Potassium 3.8 mmol/L (3.5-5.1); Sodium 143 mmol/L (136-145)
[2025-07-14] MEDS ORDERED: metroNIDAZOLE 500 MG (100 mL) BAG ONE (10:49)
[2025-07-14] MEDS ORDERED: Acetaminophen 325 MG TAB PO PRN (11:10)
[2025-07-14] MEDS ORDERED: Azithromycin 500 MG in Sodium Chloride 0.9% 250 ML 250 ML IVPB SCH (12:00)
[2025-07-14] MEDS ORDERED: Piperacillin/Tazobactam 2.25 GM in Sodium Chloride 0.9% 100 ML IVPB SCH (12:05)
[2025-07-14] MEDS ORDERED: HYDROcodone/Acetaminophen 5/325 mg Tablet PO PRN (12:06)
[2025-07-14] MEDS ORDERED: Iopamidol-370 76% 500 ML MDV (1 ML CHARGE) ONE (12:08)
[2025-07-14 19:39] LABS: CAUTI Indications for Culture Dysuria,urgency,freq; Glucose, Urine (Dipstick) Normal (Negative); Leukocyte 500 Leu/uL (Negative); Protein, Urine (Dipstick) 10 mg/dL (Neg-Trace); RBC/HPF 0-3 HPF (0-3); Specific Gravity, Urine 1.049 (1.002-1.036); WBC/HPF 21-50 HPF (0-3)
[2025-07-14 19:40] LABS: Bacteria/HPF 1+ HPF (None Seen)
[2025-07-14 19:41] LABS: Urine Culture Reflex Yes Yes
[2025-07-14] MEDS ORDERED: Famotidine/PF 20 mg/2ml Vial ONE (20:59)
[2025-07-14] MEDS ORDERED: Famotidine 20 MG TAB ONE (21:02)
[2025-07-14] MEDS: Famotidine 20 MG TAB PO SCH (21:29)
[2025-07-15 02:28] VITALS: BMI 25.5
[2025-07-15 04:55] LABS: ALT (SGPT) Less than 7 U/L (Less than 34); AST (SGOT) 15 U/L (11-34); Albumin 2.2 g/dL (3.1-4.5); Alkaline Phosphatase 64 U/L (40-110); Anion Gap 9 mmol/L (10-20); BUN (Urea Nitrogen) 33 mg/dL (9.8-20.1); Bilirubin, Total 0.4 mg/dL (0.3-1.2); Calc. Creatinine Clearance 27 mL/min (70-130); Calcium 7.4 mg/dL (7.8-10.44); Carbon Dioxide 18 mmol/L (23-31); Chloride 117 mmol/L (98-107); Globulin 2.5 g/dL (2.4-3.5); Glucose 81 mg/dL (83-110); Potassium 4.4 mmol/L (3.5-5.1); Sodium 140 mmol/L (136-145)
[2025-07-15 05:55] LABS: #Basophils 0.04 10x3/uL (0.0-0.2); #Eosinophils Less than 0.03 10x3/uL (0.0-0.7); #Monocytes 1.48 10x3/uL (0.11-0.59); #Neutrophils 15.07 10x3/uL (1.40-6.50); %Basophils 0.2 % (0.0-1.0); %Eosinophils 0.1 % (0.0-10.0); %Lymphocytes 10.0 % (21.0-51.0); %Monocytes 8.0 % (0.0-10.0); %Neutrophils 81.3 % (42.0-75.0); Hematocrit 28.7 % (36.0-47.0); Hemoglobin 9.0 g/dL (12.0-16.0); Mean Corpuscular Hemoglobin 28.6 pg (27.0-31.0); Mean Corpuscular Volume 91.1 fL (78.0-98.0); Platelet Count 196 10x3/uL (130-400); Red Blood Cell (RBC) Count 3.15 mill/uL (4.20-5.40); White Blood Cell (WBC) Count 18.52 10x3/uL (4.8-10.8)
[2025-07-15 08:10] LABS: Hematocrit 28.0 % (36.0-47.0); Hemoglobin 8.7 g/dL (12.0-16.0); Platelet Count 188 10x3/uL (130-400)
[2025-07-15 09:17] LABS: Magnesium 2.0 mg/dL (1.6-2.6)
[2025-07-15 09:52] LABS: Hematocrit 28.9 % (36.0-47.0); Hemoglobin 8.9 g/dL (12.0-16.0); Platelet Count 205 10x3/uL (130-400)
[2025-07-15 14:33] LABS: #Basophils 0.03 10x3/uL (0.0-0.2); #Eosinophils 0.04 10x3/uL (0.0-0.7); #Monocytes 0.93 10x3/uL (0.11-0.59); #Neutrophils 14.64 10x3/uL (1.40-6.50); %Basophils 0.2 % (0.0-1.0); %Eosinophils 0.2 % (0.0-10.0); %Lymphocytes 10.2 % (21.0-51.0); %Monocytes 5.3 % (0.0-10.0); %Neutrophils 83.5 % (42.0-75.0); Hematocrit 29.3 % (36.0-47.0); Hemoglobin 8.9 g/dL (12.0-16.0); Mean Corpuscular Hemoglobin 28.5 pg (27.0-31.0); Mean Corpuscular Volume 93.9 fL (78.0-98.0); Platelet Count 199 10x3/uL (130-400); Red Blood Cell (RBC) Count 3.12 mill/uL (4.20-5.40); White Blood Cell (WBC) Count 17.52 10x3/uL (4.8-10.8)
[2025-07-15] MEDS: metroNIDAZOLE 500 MG TAB PO SCH (21:12)
[2025-07-15 23:52] LABS: Campy jejuni + coli by PCR Negative (Negative); STEC Shiga Toxin 1+2 Negative (Negative); Salmonella spp. by PCR Negative (Negative); Shigella spp + EIEC by PCR Negative (Negative)
[2025-07-16 04:15] LABS: #Basophils 0.03 10x3/uL (0.0-0.2); #Eosinophils 0.03 10x3/uL (0.0-0.7); #Monocytes 0.79 10x3/uL (0.11-0.59); #Neutrophils 11.99 10x3/uL (1.40-6.50); %Basophils 0.2 % (0.0-1.0); %Eosinophils 0.2 % (0.0-10.0); %Lymphocytes 10.2 % (21.0-51.0); %Monocytes 5.5 % (0.0-10.0); %Neutrophils 83.3 % (42.0-75.0); Hematocrit 27.5 % (36.0-47.0); Hemoglobin 8.5 g/dL (12.0-16.0); Mean Corpuscular Hemoglobin 28.4 pg (27.0-31.0); Mean Corpuscular Volume 92.0 fL (78.0-98.0); Platelet Count 183 10x3/uL (130-400); Red Blood Cell (RBC) Count 2.99 mill/uL (4.20-5.40); White Blood Cell (WBC) Count 14.39 10x3/uL (4.8-10.8)
[2025-07-16 04:24] LABS: ALT (SGPT) 7 U/L (Less than 34); AST (SGOT) 10 U/L (11-34); Albumin 2.3 g/dL (3.1-4.5); Alkaline Phosphatase 66 U/L (40-110); Anion Gap 12 mmol/L (10-20); BUN (Urea Nitrogen) 24 mg/dL (9.8-20.1); Bilirubin, Total 0.3 mg/dL (0.3-1.2); Calc. Creatinine Clearance 33 mL/min (70-130); Calcium 8.0 mg/dL (7.8-10.44); Carbon Dioxide 18 mmol/L (23-31); Chloride 117 mmol/L (98-107); Globulin 2.7 g/dL (2.4-3.5); Glucose 94 mg/dL (83-110); Potassium 4.1 mmol/L (3.5-5.1); Sodium 143 mmol/L (136-145)
[2025-07-16 04:25] LABS: Magnesium 1.9 mg/dL (1.6-2.6)
[2025-07-16] MEDS: cloNIDine 0.1 MG TAB PO SCH (04:43)
[2025-07-16] MEDS: Magnesium 2 GM/50 ML(in water) 2 GM in Premix 1 BAG IVPB SCH (08:46)
[2025-07-16] MEDS: Pantoprazole 40 MG DR.TAB PO SCH (08:48)
[2025-07-16] MEDS: cloNIDine 0.1 MG TAB PO PRN (17:30)
[2025-07-16] MEDS: Mometasone Furoate 30 PUFF 220 MCG INH SCH (19:00)
[2025-07-16] MEDS: Pregabalin 50 MG CAP PO SCH (22:02)
[2025-07-16] MEDS: Apixaban 2.5 MG TAB PO SCH (22:05)
[2025-07-16] MEDS: Metoprolol Succinate XL 50 MG ER.TAB PO SCH (22:05)
[2025-07-17 04:41] LABS: #Basophils 0.03 10x3/uL (0.0-0.2); #Eosinophils 0.09 10x3/uL (0.0-0.7); #Monocytes 0.81 10x3/uL (0.11-0.59); #Neutrophils 10.67 10x3/uL (1.40-6.50); %Basophils 0.2 % (0.0-1.0); %Eosinophils 0.7 % (0.0-10.0); %Lymphocytes 12.6 % (21.0-51.0); %Monocytes 6.1 % (0.0-10.0); %Neutrophils 79.8 % (42.0-75.0); Hematocrit 27.6 % (36.0-47.0); Hemoglobin 9.0 g/dL (12.0-16.0); Mean Corpuscular Hemoglobin 29.4 pg (27.0-31.0); Mean Corpuscular Volume 90.2 fL (78.0-98.0); Platelet Count 194 10x3/uL (130-400); Red Blood Cell (RBC) Count 3.06 mill/uL (4.20-5.40); White Blood Cell (WBC) Count 13.36 10x3/uL (4.8-10.8)
[2025-07-17 04:58] LABS: Anion Gap 11 mmol/L (10-20); BUN (Urea Nitrogen) 19 mg/dL (9.8-20.1); Calc. Creatinine Clearance 36 mL/min (70-130); Calcium 8.5 mg/dL (7.8-10.44); Carbon Dioxide 19 mmol/L (23-31); Chloride 116 mmol/L (98-107); Glucose 97 mg/dL (83-110); Magnesium 1.9 mg/dL (1.6-2.6); Potassium 4.1 mmol/L (3.5-5.1); Sodium 142 mmol/L (136-145)
[2025-07-17] MEDS: NIFEdipine XL 30 MG ER.TAB PO SCH ×2 (08:06→15:37)
[2025-07-17] MEDS ORDERED: Iopamidol 370 76% 100 ML VIAL ONE (11:17)
[2025-07-17] MEDS ORDERED: hydrALAZINE 20 MG/ML VIAL SLOW IVP PRN (14:56)
[2025-07-17] MEDS: Magnesium 2 GM/50 ML(in water) 2 GM in Premix 1 BAG IVPB SCH (15:32)
[2025-07-17] MEDS: Furosemide 20 MG TAB PO SCH (20:58)
[2025-07-17] MEDS ORDERED: Metoprolol Succinate XL 25 MG ER.TAB PO SCH (21:00)
[2025-07-17] MEDS ORDERED: NIFEdipine XL 30 MG ER.TAB PO SCH ×2 (21:00)
[2025-07-18] MEDS: hydrALAZINE 20 MG/ML VIAL SLOW IVP PRN (04:08)
[2025-07-18 04:24] LABS: #Basophils Less than 0.03 10x3/uL (0.0-0.2); #Eosinophils 0.10 10x3/uL (0.0-0.7); #Monocytes 0.68 10x3/uL (0.11-0.59); #Neutrophils 6.99 10x3/uL (1.40-6.50); %Basophils 0.2 % (0.0-1.0); %Eosinophils 1.1 % (0.0-10.0); %Lymphocytes 17.5 % (21.0-51.0); %Monocytes 7.1 % (0.0-10.0); %Neutrophils 73.5 % (42.0-75.0); Hematocrit 28.4 % (36.0-47.0); Hemoglobin 9.2 g/dL (12.0-16.0); Mean Corpuscular Hemoglobin 28.9 pg (27.0-31.0); Mean Corpuscular Volume 89.3 fL (78.0-98.0); Platelet Count 217 10x3/uL (130-400); Red Blood Cell (RBC) Count 3.18 mill/uL (4.20-5.40); White Blood Cell (WBC) Count 9.52 10x3/uL (4.8-10.8)
[2025-07-18 04:45] LABS: Anion Gap 10 mmol/L (10-20); BUN (Urea Nitrogen) 14 mg/dL (9.8-20.1); Calc. Creatinine Clearance 31 mL/min (70-130); Calcium 9.3 mg/dL (7.8-10.44); Carbon Dioxide 23 mmol/L (23-31); Chloride 113 mmol/L (98-107); Glucose 104 mg/dL (83-110); Magnesium 1.9 mg/dL (1.6-2.6); Potassium 3.9 mmol/L (3.5-5.1); Sodium 142 mmol/L (136-145)
[2025-07-18] MEDS ORDERED: Metoprolol Succinate XL 25 MG ER.TAB PO SCH (09:00)
[2025-07-18] MEDS ORDERED: NIFEdipine XL 60 MG ER.TAB PO SCH (09:00)
[2025-07-18] MEDS: Magnesium 2 GM/50 ML(in water) 2 GM in Premix 1 BAG IVPB SCH (09:43)
[2025-07-18] MEDS: NIFEdipine XL 30 MG ER.TAB PO SCH (09:44)
[2025-07-18] MEDS: Lisinopril 10 MG TAB PO SCH (09:45)
[2025-07-18] MEDS: Metoprolol Succinate XL 25 MG ER.TAB PO SCH (09:46)
[2025-07-18] MEDS: Furosemide 20 MG TAB PO SCH (09:46)
[2025-07-18 16:03] VITALS: BP 162/71; TEMP 97.4
== END 2025-07-18 16:43 | disposition home or self-care (01) | DRG 312 ==
LOC: ERS 09:03 → ERHOLD 10:21 → PCU 07-15 01:05
PROVIDERS: ADMIT Internal Medicine; ATTEND Internal Medicine
DX: R55 Syncope and collapse (principal); K55.9 Vascular disorder of intestine, unspecified; N17.9 Acute kidney failure, unspecified; N39.0 Urinary tract infection, site not specified; I25.10 Atherosclerotic heart disease of native coronary artery without angina pectoris; N18.30 Chronic kidney disease, stage 3 unspecified; I12.9 Hypertensive chronic kidney disease with stage 1 through stage 4 chronic kidney disease, or unspecified chronic kidney disease; E78.5 Hyperlipidemia, unspecified; Z79.899 Other long term (current) drug therapy; Z88.1 Allergy status to other antibiotic agents; Z88.5 Allergy status to narcotic agent; Z88.8 Allergy status to other drugs, medicaments and biological substances; Z98.890 Other specified postprocedural states; M19.90 Unspecified osteoarthritis, unspecified site; I95.9 Hypotension, unspecified; S09.90XA Unspecified injury of head, initial encounter; R53.81 Other malaise; K21.9 Gastro-esophageal reflux disease without esophagitis; I48.0 Paroxysmal atrial fibrillation; W19.XXXA Unspecified fall, initial encounter; R00.1 Bradycardia, unspecified; B96.89 Other specified bacterial agents as the cause of diseases classified elsewhere; E83.42 Hypomagnesemia
CPT/HCPCS: 36415; 70450; 71045; 72125; 74174; 74177; 80048; 80053; 81001; 83735; 84100; 85025; 85610; 85730; 87077; 87086; 87186; 87324; 87449; 87505; 93005; 96361; 96374; 96375; G0390; J0360; J1308; J2405; J2543; J3475; J7030; J7120; J8499; Q9967